=== PATIENT | male | born 1955 | race Caucasian/White ===

== ENCOUNTER 2022-02-20 17:34 | Emergency (ER) | payer OTHER ==
[2022-02-20 19:08] LABS: HEMOGLOBIN 13.8 gm/dl (14.0-17.5); RED BLOOD COUNT 4.46 M/UL (4.20-5.50); WHITE BLOOD COUNT 7.9 K/UL (4.5-11.0)
[2022-02-20] MEDS ORDERED: ZOFRAN 4 MG TAB4 MG PO (20:23)
[2022-02-20] MEDS ORDERED: IBUPROFEN800 MG PO (20:23)
== END 2022-02-20 20:40 | disposition home or self-care (01) ==
LOC: ER1 17:34
PROVIDERS: Physician Assistant Medical
DX: F07.81 Postconcussional syndrome (principal); F17.200 Nicotine dependence, unspecified, uncomplicated; W19.XXXA Unspecified fall, initial encounter
CPT/HCPCS: 70450; 71045; 80053; 82550; 82553; 84484; 85025; 93005; 96374; 99284; J2405